=== PATIENT | female | born 1995 | race Caucasian/White ===

== ENCOUNTER 2018-12-09 19:48 | Outpatient (CLI) | payer SELFPAY ==
[2018-12-09] MEDS ORDERED: LACTATED RINGERS 1,000 ML ONE (20:18)
[2018-12-09] MEDS ORDERED: LACTATED RINGERS 500 ML IV ONE (20:36)
[2018-12-09] MEDS ORDERED: LACTATED RINGERS 1,000 ML IV SCH (21:00)
[2018-12-09 21:14] VITALS: BP 107/62
[2018-12-09 22:56] LABS: Basophils # (Auto) 0.1 K/mm3 (0.0-0.1); Basophils % (Auto) 0.6 % (0.0-1.8); Eosinophils % (Auto) 0.2 % (0.0-4.3); Hematocrit 35.3 % (30.3-42.9); Hemoglobin 12.3 gm/dl (10.1-14.3); Lymphocytes # (Auto) 0.5 K/mm3 (1.2-5.4); Lymphocytes % (Auto) 5.6 % (13.4-35.0); Mean Corpuscular HGB Conc 35 % (30-34); Mean Corpuscular Volume 86 fl (79-97); Monocytes # (Auto) 0.4 K/mm3 (0.0-0.8); Monocytes % (Auto) 4.5 % (0.0-7.3); Platelet Count 203 K/mm3 (140-440); Red Blood Count 4.13 M/mm3 (3.65-5.03); Red Cell Distribution Width 15.5 % (13.2-15.2)
[2018-12-09 23:10] LABS: Alanine Aminotransferase 20 units/L (7-56); Albumin 3.1 g/dL (3.9-5); BUN/Creatinine Ratio 18; Blood Urea Nitrogen 9 mg/dL (7-17); Calcium 8.8 mg/dL (8.4-10.2); Hemolysis Index 1
[2018-12-09 23:11] LABS: Bacteria,Urine 1+ /HPF (Negative); Bilirubin,Urine NEG (Negative); Blood,Urine NEG (Negative); Color,Urine Amber (Yellow); RBC,Urine < 1.0 /HPF (0.0-6.0); Urobilinogen,Urine < 2.0 mg/dL (<2.0); WBC,Urine < 1.0 /HPF (0.0-6.0)
--- NOTE | 2018-12-10 00:53 | Ultrasound Report ---
PROCEDURE: US OB BPP WO NON-STRESS TECHNIQUE: Sonographic evaluation for breathing, movement, tone, and amniotic flui d volume was performed. HISTORY: well being COMPARISONS: None . FINDINGS: FETUS Amniotic fluid volume Normal-score 2. At least one vertical pocket >2 cm or more in vertical axis . breathing: Normal-score 2 . movement: Normal-score 2 . tone: Normal-score 2 . Score: 8 of 8 . IMPRESSION: Normal biophysical profile . This document is electronically signed by Brittni Go DO., December 10 2018 12:51:57 AM ET
--- NOTE | 2018-12-10 00:55 | Ultrasound Report ---
PROCEDURE: US OB LIMITED TECHNIQUE: Obstetrical ultrasound limited for well-being, amniotic fluid volume HISTORY: PATRIA well-being COMPARISONS: None available FINDINGS: There is a single fetus in a vertex presentation. heart rate 152 bpm. The 4 quadrant amniotic f luid volume measures 9 cm. No further measurements are obtained. IMPRESSION: Single fetus in a vertex presentation. The 4 quadrant amniotic fluid volume measures 9 cm.. This document is electronically signed by Brittni Go DO., December 10 2018 12:53:09 AM ET
== END 2018-12-09 23:30 | disposition home or self-care (01) ==
LOC: TRG 19:48
PROVIDERS: ATTEND Obstetrics & Gynecology
DX: O21.2 Late vomiting of pregnancy (principal); O26.893 Other specified pregnancy related conditions, third trimester; R10.30 Lower abdominal pain, unspecified; Z3A.36 36 weeks gestation of pregnancy
CPT/HCPCS: 36415; 76815; 76819; 80053; 81001; 85025; J7120

== ENCOUNTER 2021-04-27 10:44 | Emergency (ER) | payer SELFPAY ==
[2021-04-27 10:51] VITALS: BP 117/70
--- NOTE | 2021-04-27 12:01 | Emergency Department Report ---
ED General Adult HPI - General Chief complaint: Abdominal Pain Stated complaint: 19WKS PAIN AND BLEEDING Time Seen by Provider: 04/27/21 11:50 Source: patient Mode of arrival: Ambulatory Limitations: No Limitations - History of Present Illness Initial comments: The patient presents to the emergency department the chief complaint of vaginal bleeding. Patient is G6, P5 who states she is approximately 19 weeks and followed by the [facility]. She states on Monday she began to have vaginal bleeding and then began to have lower abdominal pain that she describes as menstrual-like cramping. Patient states she has had bleeding like this with her second at about the same time and everything turned out okay. She denies any nausea vomiting. She denies any vaginal discharge. Patient also denies any sexual intercourse in the last 24 hours as well as any trauma. -: Sudden, unknown (Monday) Location: abdomen Radiation: non-radiation Severity scale (0 -10): 1 Quality: other (Cramping) Consistency: constant Improves with: none Worsens with: none Associated Symptoms: denies other symptoms Treatments Prior to Arrival: none - Related Data Home Medications Medication Instructions Recorded Confirmed Last Taken No Known Home Medications [No 08/16/15 08/16/15 Unknown Reported Home Medications] Allergies Allergy/AdvReac Type Severity Reaction Status Date / Time nitrofurantoin AdvReac Hives Verified 04/27/21 10:52 [From Macrobid] ED Review of Systems ROS: Stated complaint: 19WKS PAIN AND BLEEDING Other details as noted in HPI Comment: All other systems reviewed and negative Constitutional: denies: chills, fever Eyes: denies: eye pain, eye discharge, vision change ENT: denies: ear pain, throat pain Respiratory: denies: cough, shortness of breath, wheezing Cardiovascular: denies: chest pain, palpitations Endocrine: no symptoms reported Gastrointestinal: abdominal pain. denies: nausea, diarrhea Genitourinary: denies: urgency, dysuria, discharge Musculoskeletal: denies: back pain, joint swelling, arthralgia Skin: denies: rash, lesions Neurological: denies: headache, weakness, paresthesias Psychiatric: denies: anxiety, depression Hematological/Lymphatic: denies: easy bleeding, easy bruising ED Past Medical Hx - Past Medical History Hx Hypertension: No Hx Congestive Heart Failure: No Hx Diabetes: No Hx Deep Vein Thrombosis: No Hx Renal Disease: No Hx Sickle Cell Disease: No Hx Seizures: No Hx Asthma: No Hx COPD: No Hx HIV: No - Social History Smoking Status: Never Smoker - Medications Home Medications: Home Medications Medication Instructions Recorded Confirmed Last Taken Type No Known Home Medications [No 08/16/15 08/16/15 Unknown History Reported Home Medications] ED Physical Exam - General Limitations: No Limitations General appearance: alert, in no apparent distress - Head Head exam: Present: atraumatic, normocephalic - Eye Eye exam: Present: normal appearance, PERRL, EOMI - ENT ENT exam: Present: mucous membranes moist - Neck Neck exam: Present: normal inspection - Respiratory Respiratory exam: Present: normal lung sounds bilaterally. Absent: respiratory distress - Cardiovascular Cardiovascular Exam: Present: regular rate, normal rhythm. Absent: systolic murmur, diastolic murmur, rubs, gallop - GI/Abdominal GI/Abdominal exam: Present: soft, normal bowel sounds. Absent: distended, ten derness - Speculum exam: Present: other (deferred) - Extremities Exam Extremities exam: Present: normal inspection - Back Exam Back exam: Present: normal inspection - Neurological Exam Neurological exam: Present: alert, oriented X3, CN II-XII intact. Absent: motor sensory deficit - Psychiatric Psychiatric exam: Present: normal affect, normal mood - Skin Skin exam: Present: warm, dry, intact, normal color. Absent: rash ED Course Vital Signs 04/27/21 04/27/21 04/27/21 10:50 10:51 11:08 Temperature 98.3 F Pulse Rate 99 H Respiratory 16 Rate Blood Pressure 117/70 [Right] O2 Sat by Pulse 98 100 Oximetry ED Medical Decision Making - Lab Data Result diagrams: 04/27/21 12:09 04/27/21 12:09 Lab Results 04/27/21 04/27/21 04/27/21 Range/Units 12:09 12:09 12:09 WBC 8.1 (4.5-11.0) K/mm3 RBC 4.38 (3.65-5.03) M/mm3 Hgb 13.6 (10.1-14.3) gm/dl Hct 39.2 (30.3-42.9) % MCV 89 (79-97) fl MCH 31 (28-32) pg MCHC 35 H (30-34) % RDW 12.5 L (13.2-15.2) % Plt Count 242 (140-440) K/mm3 Lymph % (Auto) 31.2 (13.4-35.0) % Letcher % (Auto) 6.2 (0.0-7.3) % Eos % (Auto) 1.5 (0.0-4.3) % Baso % (Auto) 0.5 (0.0-1.8) % Lymph # (Auto) 2.5 (1.2-5.4) K/mm3 Letcher # (Auto) 0.5 (0.0-0.8) K/mm3 Eos # (Auto) 0.1 (0.0-0.4) K/mm3 Baso # (Auto) 0.0 (0.0-0.1) K/mm3 Seg Neutrophils % 60.6 (40.0-70.0) % Seg Neutrophils # 4.9 (1.8-7.7) K/mm3 PT 12.9 (12.2-14.9) Sec. INR 0.88 (0.87-1.13) APTT 28.3 (24.2-36.6) Sec. Sodium 139 (137-145) mmol/L Potassium 4.1 (3.6-5.0) mmol/L Chloride 103.5 (98-107) mmol/L Carbon Dioxide 23 (22-30) mmol/L Anion Gap 17 mmol/L BUN 7 (7-17) mg/dL Creatinine 0.5 L (0.6-1.2) mg/dL Estimated GFR > 60 ml/min BUN/Creatinine Ratio 14 % Glucose 102 H (65-100) mg/dL Calcium 9.1 (8.4-10.2) mg/dL Total Bilirubin 0.30 (0.1-1.2) mg/dL AST 75 H (5-40) units/L ALT 102 H (7-56) units/L Alkaline Phosphatase 69 (35-129) units/L Total Protein 7.3 (6.3-8.2) g/dL Albumin 4.0 (3.9-5) g/dL Albumin/Globulin Ratio 1.2 % Blood Type 04/27/ Range/Units 12:09 WBC (4.5-11.0) K/mm3 RBC (3.65-5.03) M/mm3 Hgb (10.1-14.3) gm/dl Hct (30.3-42.9) % MCV (79-97) fl MCH (28-32) pg MCHC (30-34) % RDW (13.2-15.2) % Plt Count (140-440) K/mm3 Lymph % (Auto) (13.4-35.0) % Letcher % (Auto) (0.0-7.3) % Eos % (Auto) (0.0-4.3) % Baso % (Auto) (0.0-1.8) % Lymph # (Auto) (1.2-5.4) K/mm3 Letcher # (Auto) (0.0-0.8) K/mm3 Eos # (Auto) (0.0-0.4) K/mm3 Baso # (Auto) (0.0-0.1) K/mm3 Seg Neutrophils % (40.0-70.0) % Seg Neutrophils # (1.8-7.7) K/mm3 PT (12.2-14.9) Sec. INR (0.87-1.13) APTT (24.2-36.6) Sec. Sodium (137-145) mmol/L Potassium (3.6-5.0) mmol/L Chloride (98-107) mmol/L Carbon Dioxide (22-30) mmol/L Anion Gap mmol/L BUN (7-17) mg/dL Creatinine (0.6-1.2) mg/dL Estimated GFR ml/min BUN/Creatinine Ratio % Glucose (65-100) mg/dL Calcium (8.4-10.2) mg/dL Total Bilirubin (0.1-1.2) mg/dL AST (5-40) units/L ALT (7-56) units/L Alkaline Phosphatase (35-129) units/L Total Protein (6.3-8.2) g/dL Albumin (3.9-5) g/dL Albumin/Globulin Ratio % Blood Type O POSITIVE - Radiology Data Radiology results: report reviewed - Medical Decision Making Discussed results with patient Critical care attestation.: If time is entered above; I have spent that time in minutes in the direct care of this critically ill patient, excluding procedure time. ED Disposition Clinical Impression: Vaginal bleeding in Disposition: 01 HOME / SELF CARE / HOMELESS Is pt being admited?: No Does the pt Need Aspirin: No Condition: Stable Instructions: Abdominal Pain (ED), Activity Restriction During , Vaginal Bleeding During , Second Trimester Referrals: PRIMARY CARE, [Primary Care Provider] - 3-5 Days EDWARDO GARSIA MD [Staff Physician] - 3-5 Days Time of Disposition: 14:58
[2021-04-27 12:31] LABS: INR 0.88 (0.87-1.13)
[2021-04-27 12:32] LABS: Partial Thromboplastin Time 28.3 Sec. (24.2-36.6)
[2021-04-27 12:43] LABS: Alanine Aminotransferase 102 units/L (7-56); Blood Urea Nitrogen 7 mg/dL (7-17); Calcium 9.1 mg/dL (8.4-10.2); Hemolysis Index 3
[2021-04-27 12:44] LABS: Basophils % (Auto) 0.5 % (0.0-1.8); Eosinophils # (Auto) 0.1 K/mm3 (0.0-0.4); Eosinophils % (Auto) 1.5 % (0.0-4.3); Hematocrit 39.2 % (30.3-42.9); Hemoglobin 13.6 gm/dl (10.1-14.3); Lymphocytes # (Auto) 2.5 K/mm3 (1.2-5.4); Lymphocytes % (Auto) 31.2 % (13.4-35.0); Mean Corpuscular HGB Conc 35 % (30-34); Mean Corpuscular Volume 89 fl (79-97); Monocytes # (Auto) 0.5 K/mm3 (0.0-0.8); Monocytes % (Auto) 6.2 % (0.0-7.3); Platelet Count 242 K/mm3 (140-440); Red Blood Count 4.38 M/mm3 (3.65-5.03); Red Cell Distribution Width 12.5 % (13.2-15.2)
[2021-04-27 12:50] LABS: BUN/Creatinine Ratio 14
--- NOTE | 2021-04-27 12:58 | Ultrasound Report ---
ULTRASOUND OBSTETRIC LIMITED INDICATION / CLINICAL INFORMATION: , pelvic pain, bleeding. Clinical Gestational Age (GA) in weeks.days: 19 weeks and 0 days TECHNIQUE: Transabdominal. COMPARISON: None currently available. Prior imaging from 12/09/2018 is noted, but was unable to be retr ieved. FINDINGS: NUMBER: Single PRESENTATION: cephalic PLACENTA: anterior fundal and free of the os. MATERNAL ADNEXA: No significant abnormality. MEASUREMENTS: - Biparietal Diameter = 4.05 cm = 18 weeks and 2 days - Head Circumference = 14.76 cm = 17 weeks and 6 days - Abdominal Circumference = 11.94 cm = 17 weeks and 5 days - Femur Length = 2.49 cm = 17 weeks and 4 days. - Estimated Weight (in grams, if calculated): 203 g +/- 30 grams. - Heart Rate (beats per minute): 145 PERCENTILE ESTIMATED WEIGHT (if calculated): 2 AVERAGE ULTRASOUND AGE (AUA) in weeks.days = 17 weeks and 6 days IMPRESSION: Single live intrauterine with estimated gestational age of 19 weeks and an 0 days based upo n dating. However, the age based upon the measurements is 17 weeks and 6 days and estimated angelito ght is abnormally low at 2%. Recommend correlation with any prior imaging and dating assessment. Atte ntion to this discrepancy is recommended on follow-up ultrasound evaluation. Signer Name: Mao Simons MD Signed: 04/27/2021 12:54 PM Workstation Name: [id number]
== END 2021-04-27 15:51 | disposition home or self-care (01) ==
LOC: ED 10:44
DX: O46.8X2 Other antepartum hemorrhage, second trimester (principal); Z3A.19 19 weeks gestation of pregnancy
CPT/HCPCS: 36415; 76805; 80053; 85025; 85610; 85730; 86900; 86901; 99283